=== PATIENT | male | born 1940 | race American Indian/Alaskan Native ===

== ENCOUNTER 2021-09-08 09:04 | Day surgery (SDC) | payer MEDICARE ==
[~2021-09-08 09:04] MED LIST: SODIUM CHLORIDE 0.9% 1000 ML 1,000 ML IV SCH
--- NOTE | 2021-09-08 09:52 | Anesthesia Consultation ---
Anesthesia Consult and Med Hx Date of service: 09/08/21 - Airway Anesthetic Teeth Evaluation: Dentures ROM Head & Neck: Adequate Mental/Hyoid Distance: Adequate Mallampati Class: Class III - Pre-Operative Health Status ASA Pre-Surgery Classification: ASA3 Proposed Anesthetic Plan: MAC - Pulmonary Hx Smoking: No Hx Respiratory Symptoms: No - Cardiovascular System Hx Hypertension: Yes Hx Coronary Artery Disease: Yes (EF 45% in 2020; last dose Eliquis 09/04/21) Hx Cardia Arrhythmia: Yes (a-fib) Hx Pacemaker: Yes (for bradicardcia; 100% v-paced per cardiology notes) Hx Internal Defibrillator: No Hx Valvular 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 Patient has some confusion about details of medical history and medications but otherwise understands and is agreeable to todays planned procedure and anesthetic. Medical history confirmed with over the phone.
--- NOTE | 2021-09-08 10:06 | Anesthesia Day of Surgery ---
Anesthesia Day of Surgery - Day of Surgery Patient Examined: Yes Patient H&P Reviewed: Yes Patient is NPO: Yes Cardiac Clearance: Yes
[2021-09-08] MEDS ORDERED: LIDOCAINE MPF (2%) 20 MG/1 ML VIAL 5 ML ONE (10:28)
[2021-09-08] MEDS ORDERED: propofoL 200 MG/20 ML VIAL IV ONE ×2 (10:29→10:46)
--- NOTE | 2021-09-08 11:06 | Short Stay Summary ---
Short Stay Documentation Date of service: 09/08/21 Narrative H&P: The patient presents for diagnostic EGD and colonoscopy to evaluate iron deficiency anemia suspected due to chronic blood loss vs malabsorption - History Past Medical History: diabetes, hypertension, other (mild dementia, hx gastric ulcers) Past Surgical History: Other (partial gastrectomoy) Social history: no significant social history, , lives with family - Allergies and Medications Current Medications: Allergies rosuvastatin [From Crestor] Allergy (Verified 09/03/21 12:58) Unknown Home Medications Medication Instructions Recorded Confirmed Last Taken Type Amaryl 09/03/21 Unknown History Estradiol/Levonorgestrel 09/03/21 Unknown History Ferrous Sulfate 09/03/21 Unknown History Furosemide ORAL LIQ 09/03/21 Unknown History Janumet 50-1,000 mg Tablet 09/03/21 Unknown History Losartan 09/03/21 Unknown History Potassium 09/03/21 Unknown History Active Medications Sodium Chloride (Nacl 0.9% 1000 Ml) 1,000 mls @ 50 mls/hr IV DIRECT BURKE - Physical exam General appearance: no acute distress, well-nourished Integumentary: no rash, no growths, no abnormal pigmentation HEENT: Atraumatic, PERRLA, EOMI, Mucous membr. moist/pink Lungs: Clear to auscultation, Normal air movement Breasts: deferred Heart: Regular rate, Normal S1, Normal S2, No murmurs Gastrointestinal: normoactive bowel sounds, no tenderness, no distended, no masses, no guarding, no organomegaly Male Genitourinary: deferred Rectal Exam: normal exam-external/orifice, normal rectal tone, no tenderness, no hemorrhoids, no mass Extremities: no ischemia, pulses intact, pulses symmetrical, No edema, normal temperature, normal color, Full ROM Neurological: Normal gait, Normal speech, Strength at 5/5 X4 ext, Normal tone, Sensation intact, Cranial nerves 3-12 NL - Brief post op/procedure progress note Date of procedure: 09/08/21 Findings: see dictations Estimated blood loss: none Pathology: list (1. stomach body biopsies for h pylori 2. ascending colon polyp 3, sigmoid polyp) Specimen disposition: to lab Condition: stable - Disposition Condition at discharge: Good Disposition: 01 HOME / SELF CARE / HOMELESS - Discharge Diagnoses (1) Iron deficiency anemia due to chronic blood loss Status: Acute Short Stay Discharge Plan Activity: other (May restart Eliquis in 7 days.) Weight Bearing Status: Full Weight Bearing Diet: regular Follow up with: AGUSTÍN VARELA MD [Primary Care Provider] - 7 Days
--- NOTE | 2021-09-08 11:11 | Operative Report ---
Operative Report Operative Report: Date of procedure: 09/08/2021 Procedure: Esophagogastroduodenoscopy with biopsies of the stomach body for H. p ylori. Preprocedure diagnosis: Iron deficiency anemia, history of peptic ulcer disease. Post procedure diagnosis: Billroth II surgical status. Bile gastritis. Endoscopist: Dr. Olguin Anesthesia: Monitored anesthesia care per anesthesia department Medications: Propofol per anesthesia Estimated blood loss: 0 After careful discussion of the nature and purpose of the procedure as well as details the technique risks benefits and alternatives consent was obtained. The patient was placed in the left lateral decubitus position and medicated per anesthesia. The tip of the [employer] EQ 570 video scope was passed per orum under direct vision into the esophagus and advanced into the stomach and duodenum. Billroth II surgical anatomy was present. The afferent and E ferret limbs of bowel were normal in appearance. The anastomosis was widely patent. The scope was withdrawn into the stomach and the stomach then gently insufflated with air. The antrum was surgically absent. The patient had a Billroth II surgical anatomy. The stomach was further insufflated and the scope was then retroflexed and partially withdrawn. There was moderate inflammation and retained bile in the stomach body. Biopsies were taken for H. pylori testing. The cardia, fundus, and body of the stomach were otherwise within normal limits and easily distensible.The scope was then withdrawn in the forward position. The esophagogastric junction was at 40 cm. The esophageal body was normal throughout. The procedure was was well tolerated and the patient was observed in recovery. Impressions: Billroth II surgical anatomy. Bile gastritis, rule out Helicobacter pylori infection. The surgical anatomy is a reasonable cause of iron deficiency and B12 deficiency. Plan: Further evaluation with colonoscopy today in light of history of polyps. Electronically signed: Bethel Olguin MD
--- NOTE | 2021-09-08 11:15 | Operative Report ---
Operative Report Operative Report: Date of procedure: 09/08/2021 Preprocedure diagnosis: Iron deficiency anemia. Rule out colon neoplasia. Post procedure diagnosis: 1.5 cm pedunculated ascending colon polyp. 1 cm sessile sigmoid polyp. Scattered sigmoid diverticula. Procedure: Colonoscopy to the cecum with hot snare polypectomy x2. Endoscopist: Dr. Olguin Anesthesia: Monitored anesthesia care per anesthesia department Estimated blood loss: 0 Medications: Monitored anesthesia care. See separate report by anesthesia for details. After careful discussion of the nature and purpose of the procedure as well as details of the technique risks benefits and alternatives the patient gave consent. Please see recent history and physical from the office. The patient was placed in the left lateral decubitus position and medicated per anesthesia. A rectal exam was performed sphincter tone was normal there were no masses palpable. The [employer] 570 scope was passed transanally and advanced under continuous direct vision without difficulty to the cecum. The colon was well prepared. The cecum was normal. The ascending colon revealed a 1.5 cm pedunculated polyp on a stalk. The polyp was carefully removed with sufficient cautery using the snare. The polyp was withdrawn on the tip of the scope followed by reinsertion of the scope and advancement to the ascending colon. The transverse colon and descending were normal. There were scattered diverticula in the sigmoid colon and a 1 cm sessile polyp present. The polyp was removed with snare electrocautery and retrieved via suction. The rectum was normal on forward and retroflexed views. The procedure was well-tolerated overall and the patient was observed in recovery. Conclusions: 1.5 cm pedunculated ascending colon polyp and a 1 cm sessile sigmoid colon polyp. Scattered sigmoid diverticula. Plan: Await pathology. Consider repeat colonoscopy in 3 to 5 years depending upon the patient's health status. Signed electronically: Bethel Olguin M.D.
[2021-09-08 11:54] VITALS: BP 129/81
--- NOTE | 2021-09-08 15:20 | Post Anesthesia Evaluation ---
- Post Anesthesia Evaluation Patient Participated: Yes Airway Patent: Yes Stable Respiratory Function: Yes Nausea/Vomiting: No Temp > 96.8F: Yes Pain Manageable: Yes Adequeate Hydration: Yes Anesthesia Complications: No
== END 2021-09-08 12:10 | disposition home or self-care (01) ==
LOC: GIO 09:04
PROVIDERS: ATTEND Internal Medicine Gastroenterology
DX: D50.0 Iron deficiency anemia secondary to blood loss (chronic) (principal); K57.30 Diverticulosis of large intestine without perforation or abscess without bleeding; K29.60 Other gastritis without bleeding; K27.9 Peptic ulcer, site unspecified, unspecified as acute or chronic, without hemorrhage or perforation; D12.5 Benign neoplasm of sigmoid colon; K63.89 Other specified diseases of intestine; K31.89 Other diseases of stomach and duodenum; I48.91 Unspecified atrial fibrillation; I42.9 Cardiomyopathy, unspecified; E11.51 Type 2 diabetes mellitus with diabetic peripheral angiopathy without gangrene; I25.10 Atherosclerotic heart disease of native coronary artery without angina pectoris; E78.00 Pure hypercholesterolemia, unspecified; I10 Essential (primary) hypertension; Z98.890 Other specified postprocedural states; Z79.899 Other long term (current) drug therapy; Z88.8 Allergy status to other drugs, medicaments and biological substances; Z95.0 Presence of cardiac pacemaker
CPT/HCPCS: 43239; 45385; 82962; 88305; 88342; J2704; J3490; J7030; J7120; Q0162